=== PATIENT | female | born 1940 | race American Indian/Alaskan Native ===

== ENCOUNTER 2017-04-01 14:30 | Outpatient (CLI) | payer MEDICARE | END 2017-04-01 14:31 | disposition home or self-care (01) | LOC: SPVWC 14:30 | PROVIDERS: ATTEND Surgery | DX: C50.912 Malignant neoplasm of unspecified site of left female breast (principal) | CPT/HCPCS: 77066; G0204 ==

== ENCOUNTER 2017-11-11 13:49 | Outpatient (CLI) | payer MEDICARE ==
--- NOTE | 2017-11-11 14:33 | Mammography Report ---
LEFT DIGITAL DIAGNOSTIC MAMMOGRAM WITH CAD: 11/11/17 13:49:00 CLINICAL: Known left breast cancer treated with Arimidex. COMPARISON:04/01/17 FINDINGS: The breast is heterogeneously dense, which may obscure small masses and limit the sensitivity of mammography.Spiculated mass in the upper outer quadrant is now apparent on the MLO view and measures approximately 2 cm maximum. Irregular mass is stable on the CC view and measures approximately 7 mm. A clip at 12 o'clock is approximately 2 cm from the mass on the CC view. No other mass or architectural distortion. No suspicious calcifications. IMPRESSION: Known left breast cancer which is now apparent on MLO views.It previously was only identified on the CC view. Recommend ultrasound correlation. BI-RADS CATEGORY: 6--Known Cancer RECOMMENDATION: Left breast ultrasound to better assess the size of the mass. ACR BI-RADS MAMMOGRAPHIC CODES: 0 = Needs additional imaging evaluation; 1 = Negative; 2 = Benign; 3 = Probably benign; 4 = Suspicious; 5 = Malignant; 6 = Known biopsy-proven malignancy COMMENT: 1. Dense breast tissue, i.e., adenosis, fibrocystic changes, etc., may obscure an underlying neoplasm. 2. Approximately 10% of cancers are not detected with mammography. 3. A negative mammography report should not delay biopsy if a clinically suspicious mass is present. COMMENT: Patient follow-up letters are generated via our [employer] application.
== END 2017-11-11 13:50 | disposition home or self-care (01) ==
LOC: SPVWC 13:49
PROVIDERS: ATTEND Surgery
DX: C50.412 Malignant neoplasm of upper-outer quadrant of left female breast (principal)
CPT/HCPCS: G0206-LT

== ENCOUNTER 2018-04-07 13:48 | Outpatient (CLI) | payer MEDICARE ==
--- NOTE | 2018-04-07 14:25 | Mammography Report ---
BILATERAL DIGITAL SCREENING MAMMOGRAM with CAD : 04/07/18 13:48:00 CLINICAL: Routine screening.Known left breast cancer treated with Arimidex. COMPARISON:11/11/17 and 04/01/17 FINDINGS: The patient is quite frail and positioning is less than optimal. The breasts are heterogeneously dense, which may obscure small masses.The known cancer is a spiculated mass in the upper-outer quadrant of the left breast and the mass is slightly larger CC view at 9 mm compared to 7 mm on the last exam. Two left upper outer biopsy clips. No new mass, architectural distortion or suspicious calcifications. The right breast is negative. IMPRESSION: Known left breast cancer with a possibly slightly larger mass. Recommend correlation with ultrasound. BI-RADS CATEGORY: 6--Known Cancer RECOMMENDATION: Routine mammographic screening. COMMENT: Patient follow-up letters are generated by our [employer] application.
== END 2018-04-07 13:49 | disposition home or self-care (01) ==
LOC: SPVWC 13:48
PROVIDERS: ATTEND Surgery
DX: Z12.31 Encounter for screening mammogram for malignant neoplasm of breast (principal); C50.912 Malignant neoplasm of unspecified site of left female breast
CPT/HCPCS: 77067